=== PATIENT | female | born 1960 | race Caucasian/White ===

== ENCOUNTER 2019-12-05 07:16 | Day surgery (SDC) | payer MEDICARE, MEDICAID ==
[2019-11-29 11:04] LABS: BASOPHILS # (AUTO) 0.1 X10'3 (0-0.2); BASOPHILS % (AUTO) 0.9 % (0-1); EOSINOPHILS # (AUTO) 0.1 X10'3 (0-0.9); EOSINOPHILS % (AUTO) 2.1 % (0-6); LYMPHOCYTES # (AUTO) 2.8 X10'3 (1.1-4.8); LYMPHOCYTES % (AUTO) 44.8 % (21-51); MEAN CORPUSCULAR HEMOGLOBIN 31.7 PG (27.0-31.0); MEAN CORPUSCULAR HGB CONC 33.7 g/dL (33.0-36.5); MEAN CORPUSCULAR VOLUME 94.1 FL (78-98); MEAN PLATELET VOLUME 8.3 FL (7.4-10.4); MONOCYTES # (AUTO) 0.2 X10'3 (0-0.9); MONOCYTES % (AUTO) 3.7 % (2-12); NEUTROPHILS # (AUTO) 3.1 X10'3 (1.8-7.7); NEUTROPHILS % (AUTO) 48.5 % (42-75); PRE OP HEMOGLOBIN 14.2 g/dL (12.0-16.0); PRE OP PLATELET COUNT 271 X10'3 (140-440); RED BLOOD COUNT 4.46 X10'6 (4.20-5.60); RED CELL DISTRIBUTION WIDTH 13.5 % (11.5-14.5)
[2019-11-29 11:50] LABS: ALBUMIN 3.6 G/DL (3.4-5.0); ALBUMIN/GLOBULIN RATIO 1.1 (1.1-1.5); ALKALINE PHOSPHATASE 81 IU/L (46-116); BLOOD UREA NITROGEN 9 MG/DL (7-18); BUN/CREATININE RATIO 10.8 (6.6-38.0); CALCIUM 8.9 MG/DL (8.5-10.1); CHLORIDE 107 MMOL/L (99-107); CREATININE 0.83 MG/DL (0.40-0.90); PRE OP ALT 18 U/L (30-65); PRE OP ANION GAP 9 (8-16); PRE OP AST 11 U/L (10-37); PRE OP BILIRUB, TOTAL 0.3 MG/DL (0.0-1.0); PRE OP GLUCOSE 113 MG/DL (70-104); PRE OP POTASSIUM 3.6 MMOL/L (3.4-5.1); PRE OP SODIUM 147 MMOL/L (135-145); TOTAL CARBON DIOXIDE 31.2 MMOL/L (24-32); TOTAL PROTEIN 6.9 G/DL (6.4-8.2); eGFR 71 ML/MIN
[2019-12-05] VITALS (9 sets, daily range): BP systolic 97–126; BP diastolic 59–71
[~2019-12-05] VITALS: Ht 160 cm; Wt 56.7 kg
[~2019-12-05 07:16] MED LIST: ALBU18HF2 INH; BUDE10.2 INH; BUPIVAcaine/PF 2.5mg/ml (0.25%) 10ml vial ONE; HYDR-3686 PO; LAMO100T PO; LIDOcaine 0.5% (5mg/ml) 50ml vial ONE; OMEP-50 PO; OXYB10TA30 PO; PROP10TA10; QUET100T33 PO; TRAZ-251 PO; albuterol 2.5 MG/3 ML nebule NEB ONE; cefazolin/dext.iso 2gm/100ml 100 ML IV ONE; famotidine 10mg tablet PO ONE; ringers solution, lacted 1,000 ML IV SCH
[2019-12-05] MEDS ORDERED: LIDOcaine 1% (10mg/ml) 2ml vial ONE (07:36)
[2019-12-05] MEDS ORDERED: ringers solution, lacted 1,000 ML IV SCH (08:17)
[2019-12-05] MEDS ORDERED: ondansetron/PF 4mg/2ml inj IV PRN (08:20)
[2019-12-05] MEDS ORDERED: fentaNYL/PF 50MCG/1 ML 2ML syringe IV PRN ×2 (08:20)
[2019-12-05] MEDS ORDERED: hydrALAZINE 20mg/ml inj. IV PRN (08:20)
[2019-12-05] MEDS ORDERED: morphine 4 MG/ML inj SYRINge IV PRN ×2 (08:20)
[2019-12-05] MEDS ORDERED: labetalol 20mg/4ml (5mg/ml) syringe IV PRN (08:20)
[2019-12-05] MEDS ORDERED: propofol 10mg/ml 20ml vial IV ONE (09:37)
[2019-12-05] MEDS ORDERED: fentaNYL/PF 50MCG/1 ML 2ML syringe ONE (09:49)
[2019-12-05] MEDS ORDERED: MIDAZolam 1mg/ml 10ml vial ONE (09:50)
[2019-12-05] MEDS ORDERED: BUPIVAcaine/PF 2.5mg/ml (0.25%) 10ml vial ONE (10:08)
--- NOTE | 2019-12-05 10:45 | NUR ---
Received from OR via [facility] , accompanied by Anesthesiologist DR GARCIA and report given by Anesthesiolgist. PT DROWSY BUT AROUSES EASILY. SKIN PINK AND WARM, MOVES ALL EXTREMITIES, WITH LIMITED MOVEMENT TO LUE D/T BLOCK. CAP REFILL GOOD. SPLINT AND MIMI WRAP DRESSING LUE CDI. PIV R WRIST PATENT AND RUNNING LR AT 100 ML/HR. VITALS WNL, 0 COMPLAINT OF PAIN, LUE ELEVATED WITH ICE APPLIED.
[2019-12-05] MEDS ORDERED: oxyCODONE/APAP 10/325mg tablet PO ONE (12:05)
--- NOTE | 2019-12-05 12:15 | NUR ---
PT ALERT AND ORIENTED, VITALS WNL, SKIN PINK AND WARM, GOOD CAP REFILL, MOVES ALL EXTREMITIES, ABD SOFT, PAIN LEVEL 0, DRESSING CDI. PIV LFA D/CD CATH TIP INTACT. D/C INSTRUCTIONS GIVEN TO PT AND FAMILY MEMBER, VERBALIZED UNDERSTANDING. ONCE INTO WHEELCHAIR PT BEGAN TO COMPLAIN OF PAIN AT 10, CRYING AND REFUSING TO LEAVE WITHOUT PAIN PILL. PAIN PILL GIVEN WITH STATED IMMEDIATE RELIEF OF PAIN. TRANSFERRED VIA WHEELCHAIR TO PERSONAL VEHICLE TO FAMILY MEMBER.
== END 2019-12-05 12:15 | disposition home or self-care (01) ==
LOC: PAS 07:16
PROVIDERS: ATTEND Orthopaedic Surgery Hand Surgery
DX: M18.11 Unilateral primary osteoarthritis of first carpometacarpal joint, right hand (principal); J43.9 Emphysema, unspecified; F31.9 Bipolar disorder, unspecified; F43.10 Post-traumatic stress disorder, unspecified; F17.210 Nicotine dependence, cigarettes, uncomplicated; Z88.2 Allergy status to sulfonamides; Z98.890 Other specified postprocedural states; Z91.09 Other allergy status, other than to drugs and biological substances; Z79.899 Other long term (current) drug therapy
CPT/HCPCS: 25310; 25447; 36415; 80053; 82948; 85025; 93005; 94640; J2001; J2250; J2704; J3010; J3490; J7120; A4215; A4618; A7000

== ENCOUNTER 2025-01-03 22:47 | Emergency (ER) | payer MEDICARE, MEDICAID ==
[~2025-01-03] VITALS: Ht 160 cm; Wt 61.5 kg
[~2025-01-03 22:47] MED LIST changes: -BUPIVAcaine/PF 2.5mg/ml (0.25%) 10ml vial ONE; -LIDOcaine 0.5% (5mg/ml) 50ml vial ONE; -OMEP-50 PO; +OMEP20CA16 PO; -QUET100T33 PO; +QUET100T34 PO; -albuterol 2.5 MG/3 ML nebule NEB ONE; -cefazolin/dext.iso 2gm/100ml 100 ML IV ONE; -famotidine 10mg tablet PO ONE; -ringers solution, lacted 1,000 ML IV SCH
[2025-01-03 23:02] VITALS: BP 139/67; PULSE 81; RESP 18; TEMP 97.8; O2SAT 94
== END 2025-01-04 02:08 | disposition left against medical advice (07) ==
LOC: ER 22:48
DX: S40.922A Unspecified superficial injury of left upper arm, initial encounter (principal); Z88.2 Allergy status to sulfonamides; Z88.8 Allergy status to other drugs, medicaments and biological substances; Z53.21 Procedure and treatment not carried out due to patient leaving prior to being seen by health care provider; W55.03XA Scratched by cat, initial encounter; Y93.89 Activity, other specified; Y92.89 Other specified places as the place of occurrence of the external cause; Y99.8 Other external cause status